=== PATIENT | female | born 1945 | race Hispanic/Latino ===

== ENCOUNTER 2016-12-01 06:57 | Day surgery (SDC) | payer MEDICARE ==
[2016-12-01 07:28] VITALS: BMI 30.7
[2016-12-01] MEDS ORDERED: Propofol 10 mg/ml Inj (20 ML) ONE (08:52)
[2016-12-01 09:33] VITALS: TEMP 97.8
[2016-12-01 09:43] VITALS: O2SAT 100
[2016-12-01 10:17] VITALS: BP 106/61; PULSE 77; RESP 17
== END 2016-12-01 10:25 | disposition home or self-care (01) ==
LOC: C.ENDO 06:57
PROVIDERS: ATTEND Internal Medicine
DX: Z12.11 Encounter for screening for malignant neoplasm of colon (principal); K62.1 Rectal polyp; Z86.010 Personal history of colon polyps; K64.8 Other hemorrhoids; E78.00 Pure hypercholesterolemia, unspecified; I10 Essential (primary) hypertension; M85.80 Other specified disorders of bone density and structure, unspecified site; E03.9 Hypothyroidism, unspecified; M19.90 Unspecified osteoarthritis, unspecified site; Z82.49 Family history of ischemic heart disease and other diseases of the circulatory system; Z83.6 Family history of other diseases of the respiratory system; Z80.8 Family history of malignant neoplasm of other organs or systems; E78.5 Hyperlipidemia, unspecified
CPT/HCPCS: 45380; 88305; J2704